=== PATIENT | female | born 1995 | race Caucasian/White ===

== ENCOUNTER 2016-09-09 09:50 | Emergency (ER) | payer MEDICAID ==
[~2016-09-09] VITALS: Ht 162.6 cm; Wt 74.9 kg
[2016-09-09 10:33] LABS: BASOPHILS % (AUTO) 0 % (0-2); EOSINOPHILS # (AUTO) 0.1 10^3uL; EOSINOPHILS % (AUTO) 2 % (0-4); LYMPHOCYTES # (AUTO) 1.5 X10^3; MEAN CORPUSCULAR HGB CONC 34.1 g/dL (31.0-37.0); MEAN PLATELET VOLUME 10.1 FL (6.0-9.5); MONOCYTES # (AUTO) 0.3 X10^3; MONOCYTES % (AUTO) 6 % (3-11); NEUTROPHILS # (AUTO) 3.8 X10^3; NEUTROPHILS % (AUTO) 66 % (51-67); PLATELET COUNT 287 10^3uL (150-450); WHITE BLOOD COUNT 5.74 10^3uL (4.0-11.0)
[2016-09-09 10:34] LABS: MEAN CORPUSCULAR VOLUME 79 FL (80-100)
[2016-09-09 10:37] LABS: BILIRUBIN,URINE Negative (Negative); CLARITY,URINE Cloudy; GLUCOSE, URINE (UA) Negative (Negative); LEUKOCYTE ESTERASE ,URINE Trace (Negative); PH,URINE 5.5 (5.0 - 8.0); UROBILINOGEN,URINE 0.2 mg/dL (0.2-1.0)
[2016-09-09 10:41] LABS: COLOR,URINE Dark Yellow; HCG,QUALITATIVE URINE Negative (Negative)
[2016-09-09 10:46] LABS: ALBUMIN 4.7 g/dL (3.4-5.0); ANION GAP 18.2 MEQ/L (3-15); CALCULATED IONIZED CALCIUM 3.8 mg/dL (3.8-4.6); TOTAL PROTEIN 7.9 g/dL (6.4-8.5)
[2016-09-09 10:50] LABS: RBC,URINE None Seen /HPF; URINE CENTRIFUGED VOLUME 12 mL
[2016-09-09 11:30] VITALS: BP 126/78
== END 2016-09-09 11:54 | disposition home or self-care (01) ==
LOC: ED 09:54
DX: R55 Syncope and collapse (principal); Z72.820 Sleep deprivation; Z63.8 Other specified problems related to primary support group
CPT/HCPCS: 36415; 80053; 81003; 81015; 81025; 84443; 85025; 87088; 93005; 93010; 99282; 99284